=== PATIENT | female | born 1980 | race Caucasian/White ===

== ENCOUNTER → 2018-09-28 | Day surgery (SDC) | payer OTHER ==
[~2018-09-28] MED LIST: NORVASC10 MG PO; TRAMADOL 50 MG50 MG PO
--- NOTE | ~2018-09-28 | OP ---
[address] [address] OPERATIVE REPORT Name: RAS DONOVAN Room: [facility] M.R.#: [id number] Admission: 09/28/18 Attend Phys: Marianne Gramajo DO Discharge: Date of : 82 Report #: [id number] THIS REPORT FOR: //name// CC: Marianne Gramajo DO [facility] physician/PCP This is Keny Bay DO, PGY-2 dictating operative on behalf of Dr. Marianne Gramajo. PREOPERATIVE DIAGNOSIS: Umbilical hernia. POSTOPERATIVE DIAGNOSIS: Umbilical hernia. SURGEON: Marianne Gramajo DO COMMERCIAL ART INSTRUCTOR: Keny Bay DO, PGY-2 OPERATION PERFORMED: Umbilical hernia repair with mesh. ANESTHESIA: General and local. ESTIMATED BLOOD LOSS: 2 mL. SPECIMENS REMOVED: None. COMPLICATIONS: None. IMPLANTS: Small Ventralex confederated colville mesh. HISTORY OF PRESENT ILLNESS: The patient is a pleasant 38-year-old female who was seen in the office for evaluation of umbilical hernia. She had umbilical hernia for the last 12 years since her first . It was discussed that open umbilical hernia repair would be recommended. Risks and complications were discussed at length to include bleeding, infection, injury to surrounding structures, mesh complications and possible recurrence. She acknowledged understanding and agreed to proceed with surgery. DESCRIPTION OF PROCEDURE: After consent was obtained, the patient was taken to the operating room and placed in supine position. Two grams Ancef given for surgical prophylaxis. Sequential compression devices applied to bilateral lower extremities. A safety belt placed across the patient's waist. The patient was then prepped and draped in a standard sterile fashion. Timeout was performed to confirm the patient, procedure. 0.5% Marcaine was injected in the infraumbilical area for local anesthesia. A transverse incision was made below the umbilicus using a 15 blade scalpel. Electrocautery was used for hemostasis. Electrocautery was used to dissect down to the level of the hernia[place] [address] OPERATIVE REPORT Name: RAS DONOVAN [id number] Admission: 09/28/18 Attend Phys: Marianne Gramajo DO Discharge: Date of : 82 Report #: [id number] sac was dissected off of the umbilicus. Once the hernia sac was entered into the plane, fascia was cleared off to allow for adequate mesh placement. Finger sweep was performed to ensure no intraabdominal adhesions. A small Ventralex confederated col[place] mesh was inserted into the abdomen. Once placement was confirmed, stitches of 3-0 PDS were used to anchor the mesh in all 4 corners. Once the mesh was anchored, the fascial defect was closed over the top using a 3-0 PDS. Subcutaneous tissue was closed with 3-0 Vicryl and skin was closed with 4-0 Monocryl. Sterile dressings were applied over top. The patient was awoken from general anesthesia and transferred to PACU in stable condition. All counts at the end of the case were correct. The patient tolerated the procedure well. By: [id number] Bay DO /nt
[2018-09-28 08:22] LABS: HEMATOCRIT 38.4 % (37.0-47.0); HEMOGLOBIN 12.6 gm/dL (12.0-15.0)
[2018-09-28 08:26] LABS: CALCIUM 9.3 mg/dL (8.5-10.1); CREATININE 0.8 mg/dL (0.6-1.3); POTASSIUM 3.3 mmol/L (3.5-5.1)
--- NOTE | 2018-09-28 16:28 | EKG ---
[place] [address] ELECTROCARDIOGRAM REPORT Name: RAS DONOVAN Room: [facility].#: [id number] Admission: 09/28/18 Attend Phys: Marianne Gramajo DO Discharge: Date of : 82 Report #: [id number] THIS REPORT FOR: //name// [facility] Test Date: 2018-09-28 Test Time: 08:16:14 Pat Name: RAS DONOVAN Department: Room: Gender: F [employer]: : 1980 Requested By: Marianne Gramajo Order Number: [id number] Reading MD: Igor Fisher Measurements Intervals [place] Rate: 80 P: 47 IL: 157 QRS: -5 QRSD: 85 T: 22 QT: 396 QTc: 457 Interpretive Statements Sinus rhythm No previous ECG available for comparison Electronically Signed On 09-28-2018 16:28:22 [employer] by Igor Fisher [email or web address] <ELECTRONICALLY SIGNED> By: Igor Fisher MD, [facility] 09/28/18 1628 0816 08 Igor Fisher MD, FACC /EPI
== END | disposition home or self-care (01) ==
LOC: M.SUR 07:52
PROVIDERS: Surgery
DX: K42.9 Umbilical hernia without obstruction or gangrene (principal); Z98.890 Other specified postprocedural states; Z88.8 Allergy status to other drugs, medicaments and biological substances; Z91.040 Latex allergy status; Z79.899 Other long term (current) drug therapy